=== PATIENT | male | born 1970 | race Caucasian/White ===

== ENCOUNTER 2019-06-10 09:47 | Emergency (ER) | payer BC, OTHER ==
[~2019-06-10] VITALS: Ht 188 cm; Wt 117.9 kg
[2019-06-10] MEDS ORDERED: TERBUTALINE SULFATE 1 MG/ML VIAL ONE (10:24)
[2019-06-10] MEDS ORDERED: LIDOCAINE HCL/MPF 1% 30 ML VIAL IJ ONE (10:29)
[2019-06-10] MEDS ORDERED: TERBUTALINE SULFATE 1 MG/ML VIAL IV ONE (10:30)
[2019-06-10] MEDS ORDERED: LIDOCAINE HCL/PF 1% 30 ML VIAL IM ONE (10:30)
[2019-06-10] MEDS ORDERED: PHENYLEPHRINE 10 MG/ML VIAL IJ ONE ×2 (10:30→10:35)
--- NOTE | 2019-06-10 11:01 | NUR ---
PT CAME IN FOR GENITAL PAIN 02/21 SINCE LAST NIGHT. PT AAOX4, VSS, RBEATHING EVEN AND UNLABORED ON RA W/ NAD NOTED. PT CONNECTED TO THE MONITOR AND UNLABORED ON RA W/ NAD NOTED. PT CONNECTED TO THE MONITOR AND POX
--- NOTE | 2019-06-10 11:51 | NUR ---
Patient discharged to home in stable condition. Written and verbal after care instructions given. Patient verbalizes understanding of instruction.
[2019-06-10 11:52] VITALS: BP 120/78
== END 2019-06-10 11:53 | disposition home or self-care (01) ==
LOC: ER 09:52
DX: N48.33 Priapism, drug-induced (principal); T43.215A Adverse effect of selective serotonin and norepinephrine reuptake inhibitors, initial encounter; Y92.89 Other specified places as the place of occurrence of the external cause
CPT/HCPCS: 54235; 99284; J2370 ×2; J3105; J3490

== ENCOUNTER 2021-08-02 16:23 | Inpatient (IN) | payer BC, OTHER ==
[~2021-08-02] VITALS: Ht 175.3 cm; Wt 123.4 kg
--- NOTE | 2021-08-02 16:33 | NUR ---
[id number] FRM HOME, ALTERED, PER "RECOVERING FROM ALC/DRUG ABUSE". THE PATIENT IS RESPONSIVE TO PAINFUL STIMULI. THE PATIENT IS ON OXYGEN AT 15L/MIN VIA NON-REBREATHER MASK. RESPIRATION REGULAR AND UNLABORED. ATTACHED TO THE MONITOR. WILL CONTINUE TO MONITOR THE PATIENT.
[2021-08-02] MEDS ORDERED: NALOXONE PREFILLED SYRINGE 2 MG/2 ML SYRINGE IV ONE ×4 (17:00→17:28)
--- NOTE | 2021-08-02 17:00 | NUR ---
IV LINE IS ESTABLISHED, BLOOD SPECIMEN COLLECTED AND SENT TO THE LAB. THE LINE IS SALINE LOCKED.
--- NOTE | 2021-08-02 17:00 | NUR ---
URINE COLLECTED AND SENT TO THE LAB
[2021-08-02] MEDS ORDERED: NALOXONE PREFILLED SYRINGE 2 MG/2 ML SYRINGE ONE ×3 (17:12→17:28)
[2021-08-02] MEDS ORDERED: ONDANSETRON HCL/PF 4 MG/2 ML VIAL ONE (17:16)
--- NOTE | 2021-08-02 17:28 | NUR ---
DR VALVERDE ORDERS: NARCAN 2 MG ONCE AT 1700 NARCAN 1 MG ONCE AT 1715 AND NARCAN 2 MG ONCE AT 1728. THE ORDERS ARE READ BACK, VERIFIED. NOTED AND CARRIED OUT.
[2021-08-02] MEDS ORDERED: ONDANSETRON HCL/PF 4 MG/2 ML VIAL IV ONE (17:30)
--- NOTE | 2021-08-02 17:34 | NUR ---
THE PATIENT IS INTUBATED BY DR MUJICA. 26 AT THE LIP. ET TUBE #7.5. RT AT THE BEDSIDE.
[2021-08-02] MEDS ORDERED: PROPOFOL 100 ML ONE (17:36)
[2021-08-02 17:42] LABS: BILIRUBIN,URINE SMALL (NEGATIVE); COLOR,URINE YELLOW (YELLOW); LEUKOCYTE ESTERASE ,URINE MODERATE (NEGATIVE); NITRITE, URINE POSITIVE (NEGATIVE); PH,URINE 7.5 (5.0-8.0); PROTEIN,URINE 30 mg/dl (NEGATIVE); UGLUCOSE NEGATIVE (NEGATIVE)
--- NOTE | 2021-08-02 17:51 | NUR ---
: [phone] ALEX ALEJANDRO MD: [phone] DR. ANA ELLIOTT
[2021-08-02 18:00] LABS: BACTERIA,URINE 4+ /HPF (None Seen); WBC,URINE 21-50 /HPF (0-3)
--- NOTE | 2021-08-02 18:00 | NUR ---
RECEIVED A CALL FROM LAB STATING THAT BLOOD FOR CBC AND LIVER PANEL ARE HEMOLYZED =. [facility] WILL BE HERE TO REDREW BLOOD. DR MUJICA AWARE.
--- NOTE | 2021-08-02 18:05 | NUR ---
BED 256 PER NURSING SUP.
[2021-08-02] MEDS ORDERED: ESCI10TA PO (18:11)
[2021-08-02] MEDS ORDERED: GABA600T12 PO (18:11)
[2021-08-02] MEDS ORDERED: WEGOVY SQ (18:11)
[2021-08-02] MEDS ORDERED: DEXL60CA3 PO (18:11)
[2021-08-02] MEDS ORDERED: LEVO125T8 PO (18:11)
[2021-08-02] MEDS ORDERED: MIRT-90 PO (18:11)
[2021-08-02] MEDS ORDERED: BUPR300S SQ (18:11)
[2021-08-02] MEDS ORDERED: BUPR300T52 PO (18:11)
[2021-08-02] MEDS ORDERED: ROCURONIUM BROMIDE 50 MG/5 ML IV ONE ×2 (18:30→20:42)
[2021-08-02] MEDS ORDERED: ETOMIDATE 2 MG/ML VIAL IV ONE ×2 (18:30→20:42)
--- NOTE | 2021-08-02 18:43 | NUR ---
REPORT GIVEN TO SYLVAIN FOR MOE
[2021-08-02 18:44] LABS: CALCIUM, SERUM 8.4 mg/dL (8.5-10.1); CREATININE 1.1 mg/dL (0.6-1.3); POTASSIUM 3.2 mmol/L (3.5-5.1)
[2021-08-02 18:49] LABS: ALBUMIN 3.2 g/dL (3.4-5.0); BILIRUBIN,DIRECT 0.2 mg/dL (0.0-0.2); BILIRUBIN,TOTAL 0.6 mg/dL (0.2-1.0); TOTAL PROTEIN, SERUM 6.5 g/dL (6.4-8.2)
--- NOTE | 2021-08-02 18:54 | NUR ---
VENT SETTINGS CURRENT MODE: A/C VC FIO2: 100 TIDAL VOLUME 550 RATE: 16 pEEP: 5
[2021-08-02] MEDS ORDERED: PROPOFOL 100 ML IV PRN (19:00)
[2021-08-02 19:14] LABS: ABG BASE EXCESS 2.6 mmol/L; ABG PCO2 57.1 mmHg (35.0-45.0); ABG PH 7.334 (7.350-7.450); ABG PO2 146.3 mmHg (75.0-100.0); COHb 0.3 % (0.5-1.5); MetHb 0.3 % (0.0-1.5); O2Hb 95.9 % (94.0-97.0); SITE, ABG Right Radial
--- NOTE | 2021-08-02 19:24 | NUR ---
RT Notes RR increased to 16 per ER MD Menjivar post ABG result. ETT advanced 3cm per ER MD Menjivar orders post chest x-ray. ETT now secured at 29cm at the lip line. No SOB noted at this time. Addendum: 08/02/21 at 2055 by HODAN URIARTE RT Amended: Links added.
--- NOTE | 2021-08-02 19:27 | NUR ---
RT ADVANCED ET TUBE [address] MUJICA.
--- NOTE | 2021-08-02 19:28 | NUR ---
OROPHARYNGEAL 18 DOMINICAN INSERTED 60 IN. PT TOLERATED WELL.
[2021-08-02] MEDS ORDERED: CEFTRIAXONE 1 G in IV D5W 50 ML IV ONE (19:30)
[2021-08-02] MEDS ORDERED: MORPHINE SULFATE INJ 2 MG/ML DISP.SYRIN IV PRN (19:30)
[2021-08-02] MEDS ORDERED: IPRATROPIUM NEB FS 0.5 MG/2.5 ML AMPUL.NEB NEB PRN (19:30)
[2021-08-02] MEDS ORDERED: Z GUARD REMEDY 4 OZ OINT TP PRN (19:30)
[2021-08-02] MEDS ORDERED: ONDANSETRON HCL/PF 4 MG/2 ML VIAL IVP PRN (19:30)
[2021-08-02] MEDS ORDERED: hydrALAZINE HCL IV 20 MG VIAL IV PRN (19:30)
--- NOTE | 2021-08-02 19:32 | NUR ---
PT TAKEN TO CT VIA ACLS PROTOCOL WITH RT
[2021-08-02 19:52] LABS: BASOPHILS % (AUTO) 0.1 % (0.0-2.0); EOSINOPHILS % (AUTO) 2.7 % (0.0-6.0); HEMATOCRIT 37 % (39-51); HEMOGLOBIN 11.9 g/dL (13.5-17.5); LYMPHOCYTES # (AUTO) 0.4 K/uL (0.8-4.8); LYMPHOCYTES % (AUTO) 9.8 % (20.0-44.0); MEAN CORPUSCULAR HGB CONC 32 g/dl (31.0-36.0); MEAN CORPUSCULAR VOLUME 90 fL (80-96); MONOCYTES # (AUTO) 0.4 K/uL (0.1-1.30); MONOCYTES % (AUTO) 10.4 % (2.0-12.0); NEUTROPHILS # (AUTO) 2.9 K/uL (1.8-8.9); PLATELET COUNT (AUTO) 144 K/uL (150-450); RED BLOOD CELL COUNT(AUTO) 4.11 MIL/uL (4.5-6.0); WHITE BLOOD COUNT (AUTO) 3.7 K/uL (4.3-11.0)
--- NOTE | 2021-08-02 19:56 | NUR ---
PT TRANSPORTED TO ROOM 253 ON VOLUNTEER SERVICES SUPERVISOR PER ACLS PROTOCOL. PROPOFOL INFUSING AT 20MCG/KG/MIN/ V/S STABLE AT TIME OF TRANSFER.
[2021-08-02] MEDS: PROPOFOL 100 ML IV PRN (20:00)
--- NOTE | 2021-08-02 20:00 | NUR ---
RN NOTE RECEIVED PATIENT FROM ER, NOTED WITH MILD AGITATION, BREATHING EVEN AND UNLABORED. ETT 7.5/28 CM AT THE LIP. TOLERATING VENT SETTINGS, AC: 12, TV 500, FIO2 100 AND PEEP 5.0. OXYGEN SATURATION OF 100 PERCENT. HOB ELEVATED 35 DEGREES. NOTED WITH ORAL GASTRIC TUBE, 59 CM AT THE LIP. FLUSHED WITH 30 CC AIR, POSITIVE PLACEMENT. CLAMPED. SKIN WARM AND DRY. NOTED WITH LEFT HAND 22G AND RIGHT HAND 22G. CURRENTLY INFUSING PROPOFOL AT 30 MCG/KG/MIN. TITRATION PER PROTOCOL. NOTED WITH INDWELLING BATRES CATHETER, DRAINING YELLOW URINE. NO HEMATURIA NOTED. BED LOW, IN LOCKED POSITION, WILL CONTINUE TO MONITOR.
[2021-08-02] MEDS: IV NS 0.9% 1,000 ML IV PRN (20:26)
[2021-08-02] MEDS: CEFTRIAXONE 1 G in IV D5W 50 ML IV SCH (20:41)
[2021-08-02] MEDS ORDERED: PROPOFOL 200 MG/20 ML VIAL IV ONE (20:42)
[2021-08-02 21:00] VITALS: BP 143/99
[2021-08-02] MEDS ORDERED: JEVITY 1.2 CAL 1,000 ML BOTTLE NG PRN (21:00)
[2021-08-02] MEDS: HEPARIN SODIUM, PORCINE 5000 UNITS/1 ML VIAL SQ SCH (21:15)
[2021-08-02 21:30] VITALS: BP 140/93
[2021-08-02 22:00] VITALS: BP 147/86
[2021-08-02 22:17] VITALS: BP 166/89
[2021-08-02] MEDS: LORAZEPAM INJ 2 MG/ML VIAL IV PRN (22:51)
--- NOTE | 2021-08-02 22:55 | NUR ---
RN NOTE PATIENT NOTED WITH MILD AGITATION/WITHDRAWAL SYMPTOMS. NOTED WITH INTERMITTENT SHIVERING AROUND NECK/JAW AREA. ORAL TEMPERATURE OF 99.5 AT THIS TIME. ADMINISTERED ATIVAN 2 MG PER MD ORDER. WILL CONTINUE TO MONITOR
[2021-08-02 23:00] VITALS: BP 159/98
[2021-08-02] MEDS ORDERED: DEXTROSE 50%-WATER 50 ML DISP.SYRIN IV PRN (23:00)
[2021-08-02] MEDS ORDERED: INSULIN REGULAR, HUMAN 100 UNIT/ML 3 ML VIAL SQ PRN (23:00)
[2021-08-03] VITALS (44 sets, daily range): BP systolic 76–143; BP diastolic 46–107
[2021-08-03 00:05] LABS: THYROID STIMULATING HORMONE 2.169 uIU/mL (0.358-3.74)
[2021-08-03] MEDS: PROPOFOL 100 ML IV PRN ×6 (00:17→11:30)
[2021-08-03] MEDS: ACETAMINOPHEN 325 MG TABLET PO PRN ×3 (00:26→22:28)
--- NOTE | 2021-08-03 00:34 | NUR ---
RN NOTE PATIENT NOTED WITH ORAL TEMPERATURE OF 100.3 F. COOLING MEASURES INITIATED. ADMINISTERED TYLENOL 650 MG VIA OGT PER MD ORDER. WILL CONTINUE TO MONITOR
--- NOTE | 2021-08-03 01:50 | NUR ---
RN NOTE PATIENT IS AWAKE. NOTED WITH 1 EPISODE OF SITTING UP FROM BED. CURRENTLY ON BILATERAL SOFT WRIST RESTRAINTS. PATIENT CURRENTLY AT 50 MCG/KG/MIN. PATIENT LAID BACK TO BACK SLOWLY, REORIENTED. INFORMED KERRY READ. PER MD, TITRATE PROPOFOL TO HIGHEST INFUSION RATE PER PROTOCOL. NOTED AND CARRIED OUT. WILL CONTINUE TO MONITOR.
[2021-08-03 04:11] LABS: BASOPHILS % (AUTO) 0.4 % (0.0-2.0); EOSINOPHILS % (AUTO) 0.8 % (0.0-6.0); HEMATOCRIT 39 % (39-51); HEMOGLOBIN 12.6 g/dL (13.5-17.5); LYMPHOCYTES # (AUTO) 0.3 K/uL (0.8-4.8); LYMPHOCYTES % (AUTO) 4.2 % (20.0-44.0); MEAN CORPUSCULAR HGB CONC 32 g/dl (31.0-36.0); MEAN CORPUSCULAR VOLUME 89 fL (80-96); MONOCYTES # (AUTO) 0.5 K/uL (0.1-1.30); MONOCYTES % (AUTO) 6.5 % (2.0-12.0); NEUTROPHILS # (AUTO) 7.1 K/uL (1.8-8.9); NEUTROPHILS % (AUTO) 88.1 % (43.0-81.0); PLATELET COUNT (AUTO) 137 K/uL (150-450); RED BLOOD CELL COUNT(AUTO) 4.36 MIL/uL (4.5-6.0)
[2021-08-03 04:38] LABS: ALBUMIN 2.9 g/dL (3.4-5.0); BILIRUBIN,TOTAL 0.6 mg/dL (0.2-1.0); CALCIUM, SERUM 7.6 mg/dL (8.5-10.1); CREATININE 1.2 mg/dL (0.6-1.3); MAGNESIUM 2.2 mg/dL (1.8-2.4); POTASSIUM 3.2 mmol/L (3.5-5.1); TOTAL PROTEIN, SERUM 6.1 g/dL (6.4-8.2)
--- NOTE | 2021-08-03 05:14 | NUR ---
RN NOTE PATIENT NOTED WITH PERSISTENT HYPOTENSION. CURRENT BLOOD PRESSURE OF 76/52, PULSE RATE OF 95 BPM. PATIENT ON IV PROPOFOL 55 MCG/KG/MIN. SEDATED. RELAYED DATA TO CARLIE READ. PER , BOLUS 1L NS & GIVE ONE DOSE OF MIDODRINE 10 MG VIA ORAL GASTRIC TUBE. NEW ORDER NOTED AND CARRIED OUT.
[2021-08-03] MEDS ORDERED: IV NS 0.9% 1,000 ML IV ONE ×2 (05:30→09:00)
[2021-08-03] MEDS ORDERED: MIDODRINE HCL (5MG) 5 MG TABLET NG ONE (05:30)
[2021-08-03] MEDS ORDERED: BLOOD SUGAR DIAGNOSTIC 1 EACH STRIP IN SCH (07:30)
--- NOTE | 2021-08-03 07:30 | NUR ---
RN OPENING NOTE PT OBSERVED IN BED. PT IS ON MECHANICAL VENT WITH ALL PRESCRIBED SETTINGS SAT 95% TOLERATING WELL WITH NO SIGNS OF LABORED BREATHING OR DISTRESS. PT HAS OG IN PLACE WITH POSITIVE PLACEMENT AND ALSO HAS FC DRAINING URINE TO GRAVITY. IV ACCESS R UA MIDLINE INFUSING WITH DIPRIVAN @60MCG/HR; L MOSCOSO 22G. BED IS LOCKED IN LOWEST POSITION AND ALL HOSPITAL SAFETY PROTOCOLS ARE IN PLACE. WILL CONTINUE TO MONITOR THIS SHIFT.
[2021-08-03] MEDS ORDERED: NOREPINEPHRINE 8 MG in IV NS 0.9% 242 ML IV PRN (08:00)
[2021-08-03] MEDS: HEPARIN SODIUM, PORCINE 5000 UNITS/1 ML VIAL SQ SCH ×2 (08:09→22:17)
[2021-08-03] MEDS: ESCITALOPRAM OXALATE (10 MG) 10 MG TABLET PO SCH (08:10)
[2021-08-03] MEDS: LEVOTHYROXINE SODIUM 125 MCG TABLET PO SCH (08:10)
[2021-08-03] MEDS: PANTOPRAZOLE 40 MG TABLET.DR PO SCH (08:11)
[2021-08-03] MEDS: GABAPENTIN 300 MG CAPSULE PO SCH ×3 (08:11→17:26)
--- NOTE | 2021-08-03 08:20 | NUR ---
RN NOTE PT BS 83. PER SLIDING SCALE, NO COVERAGE NEEDED AT THIS TIME.
[2021-08-03] MEDS ORDERED: Medication Not On Formulary EA (Bupropion Hcl (Wellbutrin Xl) 300 MG) PO SCH (09:00)
[2021-08-03] MEDS ORDERED: GABAPENTIN 400 MG CAPSULE PO SCH (09:00)
[2021-08-03] MEDS ORDERED: BUPROPION XL 150 MG TAB.ER.24 PO SCH (09:00)
[2021-08-03] MEDS ORDERED: MIDAZOLAM HCL 200 MG in IV NS 0.9% 60 ML IV PRN (10:00)
[2021-08-03] MEDS ORDERED: MIDAZOLAM HCL 100 MG in IV NS 0.9% 80 ML IV PRN (10:00)
[2021-08-03] MEDS: POTASSIUM CHLORIDE 20 MEQ POWDER PACKET GT SCH ×2 (10:40→10:46)
[2021-08-03] MEDS ORDERED: ENOXAPARIN SODIUM 40 MG/0.4 ML DISP.SYRIN SQ SCH (11:00)
[2021-08-03] MEDS ORDERED: DC PROPOFOL WHEN EXTUBATED XX PRN (11:00)
--- NOTE | 2021-08-03 12:00 | NUR ---
RN NOTE PT BS 117. PER SLIDING SCALE, NO COVERAGE NEEDED AT THIS TIME.
[2021-08-03] MEDS: IV NS 0.9% 1,000 ML IV PRN (12:07)
--- NOTE | 2021-08-03 14:40 | NUR ---
RN NOTE PT EXTUBATED. PT STABLE AT THIS TIME.
--- NOTE | 2021-08-03 14:40 | NUR ---
RT PER DR IBARRA ORDERS PATIENT WAS EXTUBATED AND PLACED ON SUPPLEMENTAL O2. PATIENT AWAKE, RESPONSIVE, NO SOB REPORTED. Addendum: 08/03/21 at 1505 by NANCY JAMES RT Amended: Links added.
--- NOTE | 2021-08-03 18:39 | NUR ---
RN CLOSING NOTE PT IS SITTING UP IN CHAIR AT BEDSIDE. PT IS ON 5L O2 VIA NC SAT 93% TOLERATING WELL WITH NO SIGNS OF LABORED BREATHING OR DISTRESS. FC DRAINING URINE TO GRAVITY -800ML. IV ACCESS R UA MIDLINE INFUSING WITH NS @75ML/HR; L MOSCOSO 22G. CALL LIGHT IS WITHIN REACH AND ALL HOSPITAL SAFETY PROTOCOLS ARE IN PLACE. WILL ENDORSE TO SENIOR BILLING CONSULTANT NURSE FOR MOE.
--- NOTE | 2021-08-03 20:00 | NUR ---
INITIAL ASSESSMENT. RECEIVED THE PT REST IN BED. AWAKE, ALERT, FOLLOW COMMANDS. SAP SENIOR DEVELOPER SHOWING S TACH. OXYGEN 5L VIA NASAL CANNULA. SAT 96%, NO ACUTE DISTRESS NOTED. SAP SENIOR DEVELOPER SHOWING S TACH, , IV RT UPPER ARM PICC LINE SAP SENIOR DEVELOPER SHOWING NSR.
[2021-08-03] MEDS: CEFTRIAXONE 1 G in IV D5W 50 ML IV SCH (22:16)
[2021-08-04] VITALS (36 sets, daily range): BP systolic 112–150; BP diastolic 60–95
[2021-08-04] MEDS: ACETAMINOPHEN 325 MG TABLET PO PRN ×3 (02:10→20:38)
[2021-08-04 05:55] LABS: CREATININE 1.2 mg/dL (0.6-1.3); POTASSIUM 3.7 mmol/L (3.5-5.1)
--- NOTE | 2021-08-04 06:27 | NUR ---
APPARATUS ENGINEERING TECHNOLOGIST. AM CARE GIVEN. OXYGEN 3L VIA N/C, SAT 96%. NO ACUTE DISTRESS NOTED, SLIDE MACHINE TENDER SHOWING NSR. F/C PATENT. URINE DRAINING. VITALS STABLE, WILL CONTINUE TO MONITOR
--- NOTE | 2021-08-04 07:25 | NUR ---
START OF SHIFT NOTES: RECEIVED PT. RESTING COMFORTABLY ON BED; AWAKE AND ALERT; VITAL SIGNS WNL; BREATHING UNLABORED; ON O2 AT 4LPM VIA NASAL CANNULA; ABLE TO MAKE NEEDS KNOWN; CALL LIGHT WITHIN REACH. WILL MONITOR HOURLY AND PRN.
--- NOTE | 2021-08-04 07:28 | NUR ---
DIET TO ADVANCE TO [facility]. SOFT FOR BREAKFAST AND START REGULAR FOR LUNCH TOLERATED PER CHARGE NURSE-SYLVAIN.
[2021-08-04] MEDS: PANTOPRAZOLE 40 MG TABLET.DR PO SCH (07:56)
[2021-08-04] MEDS: LEVOTHYROXINE SODIUM 125 MCG TABLET PO SCH (07:56)
[2021-08-04] MEDS: GABAPENTIN 300 MG CAPSULE PO SCH ×3 (08:03→17:18)
[2021-08-04] MEDS: ESCITALOPRAM OXALATE (10 MG) 10 MG TABLET PO SCH (08:03)
[2021-08-04] MEDS: HEPARIN SODIUM, PORCINE 5000 UNITS/1 ML VIAL SQ SCH ×2 (08:23→20:42)
--- NOTE | 2021-08-04 10:45 | NUR ---
PT. WAS TRANSFERRED FROM ICU TO . 109 FOR CONTINUITY OF CARE. ENDORSED TO RUSTAM; PT. WITH STABLE VS, ALERT AND ORIENTED X 4; NEEDS ATTENDED. KEPT PT. COMFORTABLY ON BED. CALL LIGHT IN REACH AND BED IN LOWEST POSITION WITH HOB IN SEMI-FOWLERS.
--- NOTE | 2021-08-04 11:00 | NUR ---
PATIENT TRANSFERRED FROM ICU REPORTED BY ANTHONY PAGE. ADMITTING DIAGNOSIS AMS, OD. AO X 4, ABLE TO RESPONDS ALL STIMULI. SKIN IS WARM TO TOUCH, KEEP CLEAN/DRY. INTACT MIDLINE ON RIGHT UPPER ARM. RESPIRATORY EVEN AND UNLABORED ON OXYGEN AT 3Ls. KEPT ELEVATED HOB FOR ENSURE AIRWAY AND ASPIRATION PRECAUTION, ALSO LOWEST POSITION OH THE BED FOR SAFETY. CALL LIGHT WITHIN REACH, WILL CONTINUE TO MONITOR.
--- NOTE | 2021-08-04 14:40 | NUR ---
"SS Consult: SS consult for drug abuse. Pt. Is a 51-year-old male who demonstrates adequate insight to the reason for hospitalization. Per pt., he presented himself to hospital for overdose. Pt. was oriented x3, alert, and cooperative. During interview, pt. was capable of following directions, made appropriate eye-contact, and appeared unkempt. Pt.s speech was at a normal rate and pt.s mood was elevated and anxious. Pt. reported no hx of suicidal ideation, or homicidal ideation. Pt. denies auditory hallucinations, visual hallucinations, paranoia, or delusions. Per pt., he stated that he has been using substance for years. Pt. would go to rehab but end up relapsing. Pts [facility] re[facility] is [facility] located in [place]. Pt. is planning to go back once discharged. Pt. goes to AA meeting once a week, pt. finds it helpful. SW explored pt.s living situation. Per pt., he lives with his and his 2 children [[address] [place] [address]]. Per pt., he reports having adequate support from family and friends in AA meeting. Pt. stated he has depression and anxiety. He sees a therapist once a week [Dr. Brewer]. Pt. is planning to go to a rehab when he is ready, pt. is planning to go to [facility] [located [place]]. Plan: SW provided available resources and pt. accepted. Upon discharge, per pt., he will return to home [[facility] [place] [address]]. Resources Provided: Winter Shelters: SPA 2 | [facility] Lilianader: [facility] Address: Confidential (call for location ) Population Served: Coed # of Beds: 57 SPA 4 | [facility] Provider: Home at Last Address: [address] [place] [address], [address] # of Beds: 49 Population Served: Rcd [facility] 6 | [facility] Provider: Home at Last Address: [address] [place] [address], [address] # of Beds: 49 Population Served: Coed [facility] Provider: Trena SALCIDO Address: [address] [facility] [address] # of Beds: 20 Population Served: Women CORINNE Facility Provider: Home at Last Address: [address] [facility] [address] # of Beds: 30 Population Served: Women SPA 8 | [facility] Provider: [facility] Address: [address] [facility] [address] # of Beds: 65 Population Served: Coed Year-round shelters: [facility] [place] [address] [phone] ; [facility] [place] [address] [place] [address]; [facility] [id number] [facility] [id number] Winter Shelters: [place] [facility] Provider: [facility] [place] Address: [address] [facility], [address] # of Beds: 47 Population Served: Coed SPA 6 | [facility] Merari [place] Provider: Home at Last Address: [address] [place] [address], [address] # of Beds: 66 Population Served: Coed [place] Provider: First to Serve Address: [address] [place], [address] # of Beds: 56 Population Served: Coed Hemal Heredia Provider: / [facility] Address: [address] [facility], [address] # of Beds: 49 Population Served: Coed SPA 8 | [place] Provider: First to Serve Address: [address] [facility], [address] # of Beds: 37 Population Served: Coed Hygiene: [facility]: [address] [address] ; [facility] [address] [facility] ; [facility] [address] . Food Resources: [employer] [facility] at [facility]- [address] [place]; Meet Each Need with Dignity ([facility]) [address] [place]; [facility] Food Pant[facility] [address] [facility]; [facility] [address] [facility]. Mental Health resources provided: [facility] [address] [place], [place] [address] ; [facility] [address] [facility] [address], [place], [place] [phone] ; [facility] [address] [facility] [place], [place] [phone] ; [facility] [place], [place] [address] Healthcare Clinics: [facility] [address] [facility], [address] [place]. [place] ; [facility] [address] [facility] [address] [place] [address]; [facility] Health [place] [address] [facility]. [place] [phone] Counseling--Outpatient [facility] [address], [address] [place], [place] [phone] (Specializes in in-depth psychotherapy for emotional distress: anxiety, depression, interpersonal conflicts, life transitions, childhood abuse) [facility] [address] [place], [place] [address] (Assist with solving problem marital difficulties, separation & divorce, aging parents, & grief, chronic & terminal illness) [facility] [address] [place], [place] [phone] (Deal with loss & grief, anxiety, marital difficulties) Homebound/Mental Health Services [address] [facility], [address] [place] [address] (Provide in-home mental services to people who are incapable of leaving their homes) [facility] for Needs of the Elderly Senior Service/Resource Center [address] [place] [address] [facility] [address] [place] [address] PSYCHIATRIC OUTPATIENT SERVICES [facility] Partial Hospitalization and Intensive Outpatient Program (Managed Care and [place] Only)[address] [facility] [phone] [facility] Partial Hospitalization and Outpatient [id number] [place] [address] [place], [place] [phone] [facility] [place] Wme[address] Walterharshad [facility] [address] [place], [place] [phone] [facility] Partial Hospitalization and Outpatient [id number] [place], [phone] Substance Abuse resources provided included: [facility] Substance Abuse Self-Helpline ([facility]) ; CRI -HELP [address] [facility]. [place] [id number] ; [facility] [address] [facility] [address] ; [facility] [address] [facility] Blvd[facility] [address] ; [facility] [address] [facility] [address] ; [facility] 49[address] [facility] [address] ; [facility] 909 [facility] [address] ; [facility] Substance Abuse Helpl[facility] ; [facility] ; [facility] [place]; [facility] [place]; [facility] Rivera Mendez; [facility] St[place]; [place]; [facility]; [facility], [facility]. Joaquina Heredia; Alcoholics Anonymous -SFV; Qh-Ttgo-Oyqxxkb ; Marijuana Anonymous -SFV; Narcotics Anonymous www.na.org;"
--- NOTE | 2021-08-04 18:30 | NUR ---
RN CLOSING NOTE PATENT IN BED, REMAINS AO X 4, IN NO ACUTE DISTRESS OBSERVED. RESPIRATORY EVEN AND UNLABORED ON ROOM AIR. SKIN IS WARM TO TOUCH KEEP CLEAN/DRY, INTACT IV SITE. KEPT ELEVATE HOB FOR ASPIRATION PRECAUTION AND ENSURE AIRWAY, ALSO LOWEST POSITION OF THE BED FOR SAFETY. CALL LIGHT WITHIN REACH, WILL ENDORSE TO SUPERVISOR FISHING.
--- NOTE | 2021-08-04 20:36 | NUR ---
Patient c/o generalized pain 11/21 but does not want morphine as he says he gets a once a month shot that "blocks narcotics". Contacted on-call provider with new order for Toradol 15mg IV x1 now.
[2021-08-04] MEDS: CEFTRIAXONE 1 G in IV D5W 50 ML IV SCH (20:38)
[2021-08-04] MEDS ORDERED: KETOROLAC TROMETHAMINE INJ 30 MG/ML VIAL IV ONE (21:00)
--- NOTE | 2021-08-04 21:30 | NUR ---
Patient reports not being able to sleep. Contacted provider on-call said okay for remeron 15mg PRN HS PO.
[2021-08-04] MEDS: MIRTAZAPINE 15 MG TABLET PO PRN (23:20)
[2021-08-05 04:00] VITALS: BP 114/81
--- NOTE | 2021-08-05 07:01 | NUR ---
RN CLOSING NOTES Patient finally able to fall asleep awhile after PRN Remeron. A&Ox4. Good urine output clear and yellow. LUIS midline intact and patent. No seizure activity or evidence of withdrawals. Currently resting in bed no signs of distress.
[2021-08-05] MEDS: LORAZEPAM INJ 2 MG/ML VIAL IV PRN ×2 (07:28→15:28)
--- NOTE | 2021-08-05 07:28 | NUR ---
RN OPENING NOTE- PATENT IN BED, REMAINS AO X 4, ANXIETY AND RESTLESSNESS OBSERVED. REQUESTED PRN. RESPIRATORY EVEN AND UNLABORED ON ROOM AIR. SKIN IS WARM TO TOUCH KEEP CLEAN/DRY, INTACT IV SITE. KEPT ELEVATE HOB FOR ASPIRATION PRECAUTION AND ENSURE AIRWAY, ALSO LOWEST POSITION OF THE BED FOR SAFETY. CALL LIGHT WITHIN REACH. MONITOR/ ASSIST
[2021-08-05] MEDS: LEVOTHYROXINE SODIUM 125 MCG TABLET PO SCH (08:04)
[2021-08-05] MEDS: PANTOPRAZOLE 40 MG TABLET.DR PO SCH (08:04)
[2021-08-05] MEDS: ESCITALOPRAM OXALATE (10 MG) 10 MG TABLET PO SCH (08:40)
[2021-08-05] MEDS: GABAPENTIN 300 MG CAPSULE PO SCH ×3 (08:40→17:36)
[2021-08-05] MEDS: HEPARIN SODIUM, PORCINE 5000 UNITS/1 ML VIAL SQ SCH ×2 (08:45→21:22)
[2021-08-05] MEDS: LEVOFLOXACIN (250MG) 250 MG TABLET PO SCH (09:11)
[2021-08-05] MEDS ORDERED: KETOROLAC TROMETHAMINE INJ 30 MG/ML VIAL IM STA (10:39)
[2021-08-05] MEDS: METRONIDAZOLE 500 MG TABLET PO SCH ×3 (10:45→21:21)
[2021-08-05] MEDS: FUROSEMIDE 40 MG/4 ML VIAL IV SCH ×2 (11:02→17:36)
[2021-08-05 12:00] VITALS: BP 120/70
[2021-08-05] MEDS: AMOX/CLAVULANATE 875 MG TABLET PO SCH ×2 (12:11→21:20)
--- NOTE | 2021-08-05 15:30 | NUR ---
RN NOTE- ANXIETY/ RESTLESSNESS PRESENT. ATIVAN 2 MG ADMINISTERED
--- NOTE | 2021-08-05 17:22 | NUR ---
RN NOTE-DR OSHEA PHONED AND ORDERED KEPPRA 1000 MG PO BID FIRST DOSE NOW AND PHENOBARBITAL 60 MG PO BID FIRST DOSE NOW. COMPLIED W ORDERS
[2021-08-05] MEDS: PHENOBARBITAL 30 MG TABLET PO SCH (17:36)
[2021-08-05] MEDS: LEVETIRACETAM (250 MG) 250 MG TABLET PO SCH ×2 (17:36→21:20)
--- NOTE | 2021-08-05 18:47 | NUR ---
RN CLOSING NOTE- PATENT IN BED, REMAINS AO X 4, ANXIETY AND RESTLESSNESS OBSERVED. DECREASED W ATIVAN. REQUESTED PRN. RESPIRATORY EVEN AND UNLABORED ON ROOM AIR. SKIN IS WARM TO TOUCH KEEP CLEAN/DRY, INTACT IV SITE. KEPT ELEVATE HOB FOR ASPIRATION PRECAUTION AND ENSURE AIRWAY, ALSO LOWEST POSITION OF THE BED FOR SAFETY. CALL LIGHT WITHIN REACH. MONITOR/ ASSIST
--- NOTE | 2021-08-05 19:10 | NUR ---
RN NOTES RECEIVED REPORT FROM MORNING RN PATIENT IN BED A/O X4 ABLE TO MAKE NEEDS KNOWN. NASAL CANULA @ 2LPM VIA NASAL CANULA SATING 94%. VITAL SIGNS TAKEN AND RECORDED. AFEBRILE NOT IN DISTRESS. ALL SAFETY MEASURES IN PLACE, HOB ELEVATED, CALL LIGHT WITHIN REACH. BED ON LOWEST POSITION AND LOCKED. NO WITHDRAWAL AND SEIZURE NOTED WILL CLOSELY MONITOR THE PATIENT.
[2021-08-05 20:00] VITALS: BP 109/62
[2021-08-05] MEDS ORDERED: KETOROLAC TROMETHAMINE INJ 30 MG/ML VIAL IV ONE (23:30)
[2021-08-05] MEDS ORDERED: diphenhydrAMINE HCL ELIX 25 MG/10 ML UDC PO ONE (23:30)
[2021-08-05] MEDS: MIRTAZAPINE 15 MG TABLET PO PRN (23:43)
[2021-08-06 04:00] VITALS: BP 93/64
[2021-08-06] MEDS: METRONIDAZOLE 500 MG TABLET PO SCH ×2 (06:16→12:58)
--- NOTE | 2021-08-06 06:56 | NUR ---
RN NOTES PATIENT REMAINS STABLE THIS SHIFT NO SIGNIFICANT CHANGES IN HEALTH CONDITION. ALL DUE MEDS GIVEN ORDERED. ALL SAFETY MEASURES IN PLACE AT ALL TIMES. HOB ELEVATED. CALL LIGHT WITHIN REACH BED ON LOWEST POSITION AND LOCKED.WILL CONTINUE TO MONITOR WILL ENDORSED FOR MOE
--- NOTE | 2021-08-06 07:30 | NUR ---
MS RN OPENING NOTES RECEIVED PATIENT AWAKE ON BED AND A/O X4. ON O2 AT 2LPM VIA NASAL CANNULA TOLERATING WELL. NO SOB NOTED. NOT IN DISTRESS. WITH COMPLAINTS OF GENERALIZED PAIN AT THE SCALE OF 8/10. COMFORT MEASURES PROVIDED. WITH IV ACCESS AT RIGHT UPPER ARM MIDLINE, SALINE LOCKED, PATENT AND INTACT. WITH BATRES CATHETER IN PLACED DRAINING CLEAR YELLOW URINE. SAFETY MEASURES IN PLACED. CALL LIGHT WITHIN REACH. BED ON LOWEST LOCKED POSITION, SIDE RAILS UP X2. WILL CONTINUE TO MONITOR.
[2021-08-06] MEDS: LEVETIRACETAM (250 MG) 250 MG TABLET PO SCH (08:28)
[2021-08-06] MEDS: GABAPENTIN 300 MG CAPSULE PO SCH ×2 (08:28→12:58)
[2021-08-06] MEDS: PHENOBARBITAL 30 MG TABLET PO SCH (08:28)
[2021-08-06] MEDS: LEVOTHYROXINE SODIUM 125 MCG TABLET PO SCH (08:29)
[2021-08-06] MEDS: HEPARIN SODIUM, PORCINE 5000 UNITS/1 ML VIAL SQ SCH (08:29)
[2021-08-06] MEDS: ESCITALOPRAM OXALATE (10 MG) 10 MG TABLET PO SCH (08:29)
[2021-08-06] MEDS: PANTOPRAZOLE 40 MG TABLET.DR PO SCH (08:29)
[2021-08-06] MEDS ORDERED: KETOROLAC TROMETHAMINE INJ 30 MG/ML VIAL IV ONE (08:30)
[2021-08-06] MEDS: AMOX/CLAVULANATE 875 MG TABLET PO SCH (08:31)
[2021-08-06] MEDS: LEVOFLOXACIN (250MG) 250 MG TABLET PO SCH (08:31)
[2021-08-06] MEDS: FUROSEMIDE 40 MG/4 ML VIAL IV SCH (08:31)
[2021-08-06 09:00] LABS: BASOPHILS % (AUTO) 0.7 % (0.0-2.0); EOSINOPHILS % (AUTO) 7.4 % (0.0-6.0); HEMATOCRIT 41 % (39-51); HEMOGLOBIN 12.9 g/dL (13.5-17.5); LYMPHOCYTES # (AUTO) 0.5 K/uL (0.8-4.8); LYMPHOCYTES % (AUTO) 11.9 % (20.0-44.0); MEAN CORPUSCULAR HGB CONC 32 g/dl (31.0-36.0); MEAN CORPUSCULAR VOLUME 90 fL (80-96); MONOCYTES # (AUTO) 0.4 K/uL (0.1-1.30); MONOCYTES % (AUTO) 9.5 % (2.0-12.0); NEUTROPHILS # (AUTO) 2.9 K/uL (1.8-8.9); NEUTROPHILS % (AUTO) 70.5 % (43.0-81.0); PLATELET COUNT (AUTO) 127 K/uL (150-450); RED BLOOD CELL COUNT(AUTO) 4.55 MIL/uL (4.5-6.0); WHITE BLOOD COUNT (AUTO) 4.1 K/uL (4.3-11.0)
[2021-08-06 09:41] LABS: ALBUMIN 2.9 g/dL (3.4-5.0); BILIRUBIN,TOTAL 0.6 mg/dL (0.2-1.0); CALCIUM, SERUM 8.2 mg/dL (8.5-10.1); CREATININE 1.4 mg/dL (0.6-1.3); POTASSIUM 3.5 mmol/L (3.5-5.1); TOTAL PROTEIN, SERUM 6.7 g/dL (6.4-8.2)
[2021-08-06] MEDS ORDERED: PHEN30TA40 PO (11:59)
[2021-08-06] MEDS ORDERED: METR500T PO (11:59)
[2021-08-06] MEDS ORDERED: LEVE250T2 PO (11:59)
[2021-08-06] MEDS ORDERED: LEVO250T59 PO (11:59)
[2021-08-06 13:00] VITALS: BP 100/40
--- NOTE | 2021-08-06 14:10 | NUR ---
MS RUG FRAME MOUNTER NOTES PATIENT WAS SEEN BY DR. SEXTON AND ORDERED PATIENT FOR DISCHARGE. DISCHARGE INSTRUCTIONS AND EDUCATION WERE PROVIDED TO THE PATIENT. HOME MEDICATION INSTRUCTION WAS GIVEN. DISCHARGE INSTRUCTION AND BELONGINGS LIST FORM WAS SIGNED BY PATIENT. ACCOMPANIED PATIENT TO THE LOBBY VIA WHEELCHAIR IN STABLE CONDITION AND WAS PICKED UP BY VIA PRIVATE CAR. MD AND CHARGE NURSE ARE AWARE OF THE DISCHARGE.
== END 2021-08-06 14:10 | disposition home or self-care (01) | DRG 917 ==
LOC: ER 16:25 → ICU 19:38 → TELE-TD 08-04 10:33 → TELE1 08-04 10:47 → MEDSG1 08-04 10:51
PROVIDERS: ADMIT Internal Medicine; ATTEND Internal Medicine
PROC: 5A1945Z Respiratory Ventilation, 24-96 Consecutive Hours (ICD-10-PCS; principal; 2021-08-02)
PROC: 0BH18EZ Insertion of Endotracheal Airway into Trachea, Via Natural or Artificial Opening Endoscopic (ICD-10-PCS; 2021-08-02)
PROC: 05H933Z Insertion of Infusion Device into Right Brachial Vein, Percutaneous Approach (ICD-10-PCS; 2021-08-02)
DX: T42.4X1A Poisoning by benzodiazepines, accidental (unintentional), initial encounter (principal); A41.9 Sepsis, unspecified organism; J96.01 Acute respiratory failure with hypoxia; G92.8 Other toxic encephalopathy; R65.21 Severe sepsis with septic shock; J96.02 Acute respiratory failure with hypercapnia; J69.0 Pneumonitis due to inhalation of food and vomit; N39.0 Urinary tract infection, site not specified; D61.818 Other pancytopenia; I10 Essential (primary) hypertension; E11.9 Type 2 diabetes mellitus without complications; E03.9 Hypothyroidism, unspecified; F32.A Depression, unspecified; E87.6 Hypokalemia; Z79.899 Other long term (current) drug therapy; F13.10 Sedative, hypnotic or anxiolytic abuse, uncomplicated; Z86.59 Personal history of other mental and behavioral disorders; R56.9 Unspecified convulsions; E86.1 Hypovolemia; Y92.9 Unspecified place or not applicable; Y92.009 Unspecified place in unspecified non-institutional (private) residence as the place of occurrence of the external cause
CPT/HCPCS: 31720; 36415; 36600; 70450-TC; 71045-TC; 71250-TC; 80048-TC; 80053-TC; 80076-TC; 81001; 82550-TC; 82803-TC; 83605-TC; 83735-TC; 83880; 84100-TC; 84439-TC; 84443-TC; 84481; 84484-TC; 85025-TC; 87040-TC; 87081-TC; 87086-TC; 87186-TC; 94002-TC; 94003-TC; 94799-TC; 95819-TC; 97116-TC; 97530-TC; 99082-TC; C9803; G0378; J0696; J1644; J1815; J1885; J1940; J2060; J2250; J2270; J2310; J2405; J2704; J3490; J7030; J7050; J7060; Q0163